=== PATIENT | male | born 1980 | race Caucasian/White ===

== ENCOUNTER 2024-11-08 14:28 | Emergency (ER) | payer MEDICAID, SELFPAY ==
[2024-11-08 14:50] VITALS: BP 122/77
--- NOTE | 2024-11-08 16:49 | ED.MUSCINJ ---
HPI-Injury
General
Chief Complaint: Musculo-Skeletal Complaint
Source: patient
Exam Limitations: none
Time Seen by Provider: 11/08/24 16:43
Nursing documentation reviewed up to this point in time: agreed with
History of Present Illness-Injury
Is this injury a work related problem?: No
Is pt an associate of [facility]?: No
Initial Injury comments:
Patient to ED with complaint of right lateral knee pain. Pain started 1.5 weeks ago. He is wearing a knee brace but states it hurts to put any weight on his leg. No known trauma. Denies fever/chills, recent illness. No redness or swelling of
knee. Brought self to ED for eval.
Past History
Past History
ED Past Medical History: Psychiatric
Social History
Tobacco: Non-smoker
Alcohol: None
Drug: Narcotics
Personal: Single
Living: with family
Employment: Not employed
Family History
Family History: Unable to obtain
Review of Systems
Review of Systems
Allergies reviewed?: Yes
All Other Systems: ROS reviewed and negative except as documented in HPI and ROS
Constitutional: Reports no symptoms
EENT: Reports no symptoms
Respiratory: Reports no symptoms
Cardiac: Reports no symptoms
ABD/GI: Reports no symptoms
: Reports no symptoms
Musculoskeletal: Reports joint pain (Pain to right knee)
Skin: Reports no symptoms
Neurological: Reports no symptoms
Psychiatric: Reports no symptoms
Musculoskeletal Injury Exam
Musculoskeletal Injury Exam
Right Knee:
Pain with Movement?: Moderate
Tender to palpation?: Moderate
Soft tissue swelling?: None
External deformity and angulation?: None
Joint effusion?: None
Contusion?: None
Hematoma-local bleeding into tissue?: None
Crepitus with movement?: No
Joint instability?: No
Malalignment/deformity?: No
Range of motion: Full
Distal skin color and temperature: normal-warm & good color
Capillary Refill: normal
Normal distal neurovascular exam?: Yes
Phy Exam
General Physical Exam
General Presentation: well appearing and no apparent distress
General age: appears stated age
General Skin: warm and dry
General Habitus: normal
Musculoskeletal Exam
Musculoskeletal Exam: full ROM and neuro vasc intact
Skin Exam
Skin Exam: normal color, warm/dry and no rash
Psychiatric Exam
Psychiatric Exam: normal mood/affect
Injury Course
Orders/Labs/Results
Orders:
Orders
11/08/24 14:55
CR Knee- Right 4 Or More View* Urgent
Comment:
Reason For Exam: swelling, pain, no injury
11/08/24 16:48
Crutches-Treatment ONCE
Ketorolac [Toradol] 60 mg IM NOW STA
*Radiology
Radiology exam reviewed: radiology read reviewed
*Pulse Oximetry
SaO2: 100
Oxygen Mode of Delivery: Room air
Patient hypoxic: no
*Critical Care Note
Total Time (30-74mins, 75-104mins- exclusive of procedures): Not Applicable
Update Note
Update Note:
Patient to ED with complaint of right lateral knee pain x 1.5 weks. No history of trauma. No redness or sswelling to joint. No ligmament laxity on exam. He has full ROM. Neurovasc. intact. WIll provide crutches, recommend ice, ibuprofen. He
shadia follow up with ortho. Given instrutions on s/s toreturn to ED and he is agreeable to plan.
ED Attending Note
-
Portions of this chart may have been created with voice recognition software.� Occasional wrong word or��sound alike� substitutions may have occurred due to the inherent limitations of voice recognition software.
Discharge Plan
Departure
Prescriptions:
No Action
fluoxetine 20 MG capsule
80 mg PO DAILY
lamotrigine 100 MG tablet
100 mg PO DAILY
Tylenol Pm
PO PRN PRN (Reason: pain)
Referrals:
NONE,* [Family Provider, Internal Medicine]
Interventions
Interventions:
*Risk Screen - Suicide Last Done: 11/08/24 14:50
*General Assessment Last Done: 11/08/24 14:50
*Neglect/Abuse Screening Last Done: 11/08/24 14:50
*ED COVID-19 Vaccine History Last Done: 11/08/24 14:50
Discharge Date and Time
Print Language: SAMI
[2024-11-08] MEDS: TORADOL 60 MG IM (17:38)
== END 2024-11-08 17:48 | disposition home or self-care (01) ==
LOC: EMR 14:28
PROVIDERS: EMERGENCY PHYSICIAN Emergency Medicine
DX: M25.561 Pain in right knee (principal)
CPT/HCPCS: 96372; 99284; 73564

== ENCOUNTER 2025-01-20 18:39 | Emergency (ER) | payer SELFPAY ==
[2025-01-20 18:46] VITALS: BP 117/81
--- NOTE | 2025-01-20 21:32 | ED.GENMED ---
History of Present Illness
General
Chief Complaint: Abdominal Symptoms
Source: patient
Exam Limitations: none
Time Seen by Provider: 01/20/25 21:27
Nursing documentation reviewed up to this point in time: agreed with
History of Present Illness
History of Present Illness:
Patient is a 44-year-old male who presents to the ER for evaluation. Patient is requesting a note for work. He reports he called out of work Saturday and today because he had been vomiting. He feels better today. he denied any associated
fevers. Denies any abdominal pain/diarrhea. He has no complaints now and is simply requesting work note. He has no insurance and tried multiple urgent care centers. He reports the urgent care was not able to write a work note and so he came here
to the ER.
Past History
Past History
ED Past Medical History: Psychiatric
Social History
Tobacco: Non-smoker
Alcohol: None
Drug: Narcotics
Personal: Single
Living: with family
Employment: Not employed
Family History
Family History: Unable to obtain
Phy Exam
General Physical Exam
General Presentation: no apparent distress
General age: appears stated age
General Skin: warm and dry
General Habitus: normal
General Mental: alert
General Hydration: appears well hydrated
Cardiovascular Exam
Cardiovascular Exam: regular rate/rhythm, no murmur and normal peripheral pulses
Pulmonary Exam
Pulmonary Exam: lungs clear and no respiratory distress
Gastrointestinal Exam
Gastrointestinal Exam: non tender and soft
Neurological Exam
Neurological Exam: alert and oriented x3
Musculoskeletal Exam
Musculoskeletal Exam: full ROM
Skin Exam
Skin Exam: normal color and warm/dry
Psychiatric Exam
Psychiatric Exam: normal mood/affect
Course
Vital Signs
Initial and Last Documented VS:
Initial Vital Signs
Temp Pulse Resp BP Pulse Ox
98.0 F 88 18 117/81 97
01/20/25 18:46 01/20/25 18:46 01/20/25 18:46 01/20/25 18:46 01/20/25 18:46
Last Documented Vital Signs
Temp Pulse Resp BP Pulse Ox
98.0 F 88 18 117/81 97
01/20/25 18:46 01/20/25 18:46 01/20/25 18:46 01/20/25 18:46 01/20/25 18:46
MDM/Problems Addressed
MDM/Problems Addressed:
Patient is a 44-year-old male who presented to the ER for work note he called out sick Saturday and today Saturday because he had intermittent vomiting. He no longer feels ill no vomiting diarrhea no abdominal pain no fevers no complaints.
*Pulse Oximetry
SaO2: 97
Oxygen Mode of Delivery: Room air
Patient hypoxic: no
*Critical Care Note
Total Time (30-74mins, 75-104mins- exclusive of procedures): Not Applicable
ED Attending Note
-
Portions of this chart may have been created with voice recognition software.� Occasional wrong word or��sound alike� substitutions may have occurred due to the inherent limitations of voice recognition software.
Discharge Plan
Departure
Patient Disposition: Home (Routine Discharge)
Date of Disposition: 01/20/25
Time of Disposition: 21:36
Patient with high blood pressure during this ER visit?: No
Condition: Fair
Covid-19: Not Applicable
Discharge Problem:
nausea and vomiting resolved
Prescriptions:
No Action
fluoxetine 20 MG capsule
80 mg PO DAILY
lamotrigine 100 MG tablet
100 mg PO DAILY
Tylenol Pm
PO PRN PRN (Reason: pain)
Referrals:
[facility] [Outside]
Stand Alone Forms: Return to Work
Activity Restrictions/Additional Instructions:
Return if any worsening of symptoms
Interventions
Interventions:
*Risk Screen - Suicide Last Done: 01/20/25 21:12
*General Assessment Last Done: 01/20/25 18:46
*Neglect/Abuse Screening Last Done: 01/20/25 21:13
*ED COVID-19 Vaccine History Last Done: 01/20/25 21:11
*ED Influenza Vaccine History Last Done: 01/20/25 21:11
YS-Wntymz-Kdanqxsvol Assessment Last Done: 01/20/25 21:13
Discharge Date and Time
Print Language: THAI
== END 2025-01-20 21:48 | disposition home or self-care (01) ==
LOC: EMR 18:39
PROVIDERS: EMERGENCY PHYSICIAN Emergency Medicine
DX: R11.2 Nausea with vomiting, unspecified (principal); Z59.71 Insufficient health insurance coverage
CPT/HCPCS: 99282

== ENCOUNTER 2025-02-16 17:02 | Emergency (ER) | payer MEDICAID, SELFPAY ==
[2025-02-16 17:09] VITALS: BP 122/82
[2025-02-16 17:36] LABS: Hematocrit 45.4 % (39.0-52.0); Hemoglobin 14.7 g/dL (13.0-18.0); Mean Corp Hgb Conc. 32.4 g/dL (33.0-37.0); Mean Corpuscular Volume 87.1 fL (80.0-94.0); Nucleated Red Blood Cells % 0 % (-); Platelet Count 198 10^3/uL (130-400); Red Cell Dist. Width 13.1 % (11.5-14.5)
[2025-02-16 17:44] LABS: COVID-19 Antigen Positive (Negative)
[2025-02-16 17:59] LABS: ALT (SGPT) 33 U/L (0-50); AST (SGOT) 26 U/L (17-59); Albumin 4.8 g/dl (3.5-5.0); Alkaline Phosphatase 92 U/L (38-126); Blood Urea Nitrogen 18 mg/dl (9-20); Calcium 9.2 mg/dl (8.4-10.2); Carbon Dioxide 25 mmol/L (22-30); Chloride 103 mmol/L (98-107); Glucose 130 mg/dl (70-99); Potassium 3.7 mmol/L (3.5-5.1); Sodium 137 mmol/L (135-145); Total Protein 8.2 g/dl (6.3-8.2); eGFR > 60.00
[2025-02-16 19:37] VITALS: BMI 24.5
--- NOTE | 2025-02-16 19:45 | ED.GENMED ---
History of Present Illness
General
Chief Complaint: Abdominal Symptoms
Time Seen by Provider: 02/16/25 19:45
History of Present Illness
History of Present Illness:
FOCUSED PAST MEDICAL HISTORY
- Questionable mental health diagnosis
REVIEW OF OLD RECORDS
- The patient was seen here earlier this month also with nausea and vomiting
Note:
CHIEF COMPLAINT(S)
Fatigue, vomiting, and feverish symptoms.
HISTORY OF PRESENT ILLNESS
The patient is a 45-year-old male presenting with symptoms that began on Saturday, characterized by marked fatigue. By Saturday night, the patient experienced persistent vomiting throughout the day on Saturday but noted a resolution of vomiting by the
current day. The patient described feeling feverish, accompanied by headaches, and stated, 'I never get headaches.' These sensations of fever and headaches were more pronounced initially and have improved over the course of the illness. The patient
has not experienced a fever today. They reported previously jodee COVID-19 in 2019, which lasted three weeks and significantly impacted their health at that time. Current symptoms are reportedly less severe compared to the initial 2019
episode.
Laboratory investigations revealed a leukocyte count of 3.8 x 10^3/�L and a hemoglobin level of 14.7 g/dL. Lymphocyte percentage was slightly low at 15.7%. The patient tested positive for COVID-19 but does not appear overtly dehydrated according to
the laboratory findings.
PHYSICAL EXAM
General: Alert, no acute distress. Room air sats 99%
Skin: Warm, dry.
Head: Normocephalic, atraumatic.
Neck: Supple, trachea midline.
Eye, Ears, Nose, Mouth, and Throat: Oral mucosa moist.
Cardiovascular: Normal peripheral perfusion, No edema. Heart rate not elevated, cardiac sounds normal. Heart rate on my examination was 90.
Respiratory: Respirations are non-labored, lungs sound clear. Breath sounds are clear.
Gastrointestinal: Abdomen nondistended.
Back: Normal range of motion, normal alignment.
Musculoskeletal: Normal range of motion, normal strength.
Neurological: Alert and oriented to person, place, time, and situation, no focal neurological deficits observed.
Psychiatric: Cooperative, appropriate mood and affect.
PLAN
- Recommend use of antipyretics such as acetaminophen or ibuprofen to manage fever and discomfort.
- Advise patient to consider wearing a mask at work to protect others due to recent COVID-19 infection.
- Provide a note excusing the patient from work through the end of today.
- Encourage movement and activity as tolerated, as patient feels improvement with mobility.
- Monitor symptoms and seek further medical attention if there is any escalation or new symptoms develop.
DIFFERENTIAL DIAGNOSIS
The Differential Diagnosis includes, in no particular order and is not limited to:
1. COVID-19 infection
2. Influenza
3. Viral gastroenteritis
4. Mononucleosis
5. Strep throat
6. Sinusitis
7. Dehydration
8. Migraine headache
9. Seasonal allergies
10. Common cold
Disposition:
SUMMARY OF ENCOUNTER
The patient, a 45-year-old male, presented to the emergency department with symptoms starting four days ago, which included fatigue, vomiting, feverish feeling, and headaches. The patient reported significant improvement by the day of the visit,
particularly in headaches and nausea. Initially, the patient experienced tachycardia during triage, but upon evaluation by the physician, the heart rate was normal at 90 bpm. The patient was COVID-19 positive with less severe symptoms compared to a
previous 2020 COVID-19 episode.
DISPOSITION
Discharge
PLAN
- Recommend use of antipyretics such as acetaminophen or ibuprofen for any residual fever or discomfort.
- Advise the patient to consider wearing a mask at work to protect others due to recent COVID-19 infection.
- Provide a note excusing the patient from work through the end of today.
- Encourage movement and activity as tolerated.
- Monitor symptoms and seek further medical attention if there is any escalation or new symptoms develop.
INDEPENDENT REVIEW OF LABS AND INTERPRETATION OF TESTS
My independent review of the Complete Blood Count (CBC) shows a leukocyte count of 3.8 x 10^3/�L and a lymphocyte percentage of 15.7%. Hemoglobin level is 14.7 g/dL.
PATIENT EDUCATION AND COUNSELING
The patient was informed about the importance of hydration and resting to help with recovery from COVID-19. He was also advised to seek medical attention if symptoms worsen or new symptoms arise. Guidance was given on the importance of wearing masks
in public settings to prevent transmission.
FOLLOW-UP INSTRUCTIONS
Patient advised to follow up with primary care provider if symptoms do not improve or worsen. Immediate medical attention should be sought if any new or concerning symptoms develop.
MEDICATION RECONCILIATION
Acetaminophen or ibuprofen recommended for fever management (specific brand not mentioned).
MEDICAL DECISION MAKING
-Complexity of Data Reviewed: Chronic conditions affecting care include the patients past infection with COVID-19. Differential diagnosis for current symptoms includes COVID-19 infection, viral gastroenteritis, influenza, mononucleosis, strep
throat, sinusitis, dehydration, migraine headache, seasonal allergies, and common cold.
-Data:
Category 1
Review of the Complete Blood Count (CBC) including leukocyte count, hemoglobin, and lymphocyte percentage was conducted.
-Risk:
Prescription medication was not prescribed, but vkwq-ssz-niwauin antipyretics were recommended.
DIAGNOSIS
COVID-19 positive (ICD-10: U07.1)
Past History
Past History
ED Past Medical History: Psychiatric
Social History
Tobacco: Non-smoker
Alcohol: None
Drug: Narcotics
Personal: Single
Living: with family
Employment: Not employed
Family History
Family History: Unable to obtain
Phy Exam
Physical Exam
Physical Exam:
See HPI
Course
Orders/Labs/Results
Orders:
Orders
02/16/25 17:24
COVID-19 Antigen Urgent
Source: Nasal Swab
Complete Blood Count/With Diff Urgent
Comprehensive Metabolic Panel Urgent
INF RAPID [Influenza A+B Rapid Molecular] Urgent
SANJAY Source: Nasal Swab
Specimen Description:
Abnormal Lab Results
02/16/25
17:24
WBC 3.8 L 10^3/uL
(4.8-10.8)
MCHC 32.4 L g/dL
(33.0-37.0)
MPV 10.9 H fL
(7.4-10.4)
Absolute Lymphs (auto) 0.6 L 10^3/uL
(1.2-3.4)
Lymphocytes % 15.7 L %
(20.5-51.1)
Monocytes % 13.3 H %
(1.7-9.3)
Glucose 130 H mg/dl
(70-99)
SARS-CoV-2 Antigen Positive A
(Negative)
02/16/25 17:24
02/16/25 17:24
Vital Signs
Initial and Last Documented VS:
Initial Vital Signs
Temp Pulse Resp BP Pulse Ox
36.7 C 116 20 122/82 99
02/16/25 17:09 02/16/25 17:09 02/16/25 17:09 02/16/25 17:09 02/16/25 17:09
Last Documented Vital Signs
Temp Pulse Resp BP Pulse Ox
36.7 C 116 20 122/82 99
02/16/25 17:09 02/16/25 17:09 02/16/25 17:09 02/16/25 17:09 02/16/25 19:45
*Pulse Oximetry
SaO2: 99
Oxygen Mode of Delivery: Room air
Patient hypoxic: no
*Critical Care Note
Total Time (30-74mins, 75-104mins- exclusive of procedures): Not Applicable
ED Attending Note
-
Portions of this chart may have been created with voice recognition software.� Occasional wrong word or��sound alike� substitutions may have occurred due to the inherent limitations of voice recognition software.
Discharge Plan
Departure
Patient Disposition: Home (Routine Discharge)
Date of Disposition: 02/16/25
Time of Disposition: 19:56
Patient with high blood pressure during this ER visit?: Yes
Discharge Problem:
COVID-19
Instructions: Nausea and Vomiting, Adult (DC), COVID-19 in adults - ED (DC), BLOOD PRESSURE
Prescriptions:
No Action
fluoxetine 20 MG capsule
80 mg PO DAILY
lamotrigine 100 MG tablet
100 mg PO DAILY
Tylenol Pm
PO PRN PRN (Reason: pain)
Referrals:
NONE,* [Family Provider, Internal Medicine]
Stand Alone Forms: Return to Work
Activity Restrictions/Additional Instructions:
Continue Tylenol and/or Motrin for fevers and pains. Return here if worse or other concerns. You are COVID-19 positive but other basic blood work is unremarkable. I have included a work note.
Interventions
Interventions:
*Risk Screen - Suicide Last Done: 02/16/25 17:09
*General Assessment Last Done: 02/16/25 19:36
*Neglect/Abuse Screening Last Done: 02/16/25 17:09
*ED- Fall Risk Assessment Last Done: 02/16/25 19:36
*ED COVID-19 Vaccine History Last Done: 02/16/25 19:36
*ED Influenza Vaccine History Last Done: 02/16/25 19:36
RG-Ymlgwc-Tasxkhlfbn Assessment Last Done: 02/16/25 19:33
Discharge Date and Time
Print Language: FAROESE
[2025-02-16 20:14] VITALS: BP 139/90
== END 2025-02-16 20:14 | disposition home or self-care (01) ==
LOC: EMR 17:02
PROVIDERS: Student in an Organized Health Care Education/Training Program; EMERGENCY PHYSICIAN Emergency Medicine
DX: U07.1 COVID-19 (principal); R03.0 Elevated blood-pressure reading, without diagnosis of hypertension; Z86.16 Personal history of COVID-19
CPT/HCPCS: 99283; 80053; 85025; 87502; 87811

== ENCOUNTER 2025-03-30 12:23 | Emergency (ER) | payer SELFPAY ==
[2025-03-30 12:29] VITALS: BP 121/83
--- NOTE | 2025-03-30 14:28 | ED.GENMED ---
History of Present Illness
General
Chief Complaint: Musculo-Skeletal Complaint
Time Seen by Provider: 03/30/25 14:02
History of Present Illness
History of Present Illness:
With history of schizophrenia presents the emergency department with swelling and pain. He is unable to bear weight on the affected extremity. He has a history of a 'ligament tear' of his extremity states he has has 'difficulty' since that time.
He has never had swelling to this degree. Denies fevers or chills. Denies any acute traumatic injury. Denies any known recent tick bites. Has been taking ibuprofen without relief
Past History
Past History
ED Past Medical History: Psychiatric
Social History
Tobacco: Non-smoker
Alcohol: None
Drug: Narcotics
Personal: Single
Living: with family
Employment: Not employed
Family History
Family History: Unable to obtain
Review of Systems
Review of Systems
Allergies reviewed?: Yes
All Other Systems: ROS reviewed and negative except as documented in HPI and ROS
Phy Exam
Physical Exam
Physical Exam:
GEN: Well appearing, NAD, WDWN
HEENT: Oral mucosa moist, no scleral icterus
Cardiac: Regular rate
Lung: No respiratory distress, no tachypnea
MSK: Large left knee effusion without erythema, range of motion restricted by pain
Skin: Good color, no pallor or jaundice, no rashes
Neuro: AO x3, moves all extremities freely
Psych: Calm, cooperative
Course
Orders/Labs/Results
Orders:
Orders
03/30/25 12:24
Knee, Left 4 or More Views [CR Knee - Left 4 Or More View*] Urgent
Comment:
Reason For Exam: pain
03/30/25 14:26
Ketorolac [Toradol] 30 mg IM NOW STA
03/30/25 14:32
Body Fluid Cell Count Urgent
What is the Body Fluid: joint
Date Specimen was Collected: 03/30/25
Time Specimen was Collected: 14:31
Comment: with DIFF
Body Fluid Crystals Urgent
What is the Body Fluid: joint
Date Specimen was Collected: 03/30/25
Time Specimen was Collected: 14:31
Lyme Progressive Urgent
03/30/25 14:34
Fluid Culture with Gram Stain Urgent
SANJAY Source: Joint Fluid
Specimen Description:
Date Specimen was Collected: 03/30/25
Time Specimen was Collected: 14:
Vital Signs
Initial and Last Documented VS:
Initial Vital Signs
Temp Pulse Resp BP Pulse Ox
98 F 105 18 121/83 99
03/30/25 12:29 03/30/25 12:29 03/30/25 12:29 03/30/25 12:29 03/30/25 12:29
Last Documented Vital Signs
Temp Pulse Resp BP Pulse Ox
98 F 105 18 121/83 99
03/30/25 12:29 03/30/25 12:29 03/30/25 12:29 03/30/25 12:29 03/30/25 14:31
Procedures
Incision/Drainage/Joint Aspiration
L knee:
Anethesia: 1% Lidocaine
Preparation: cleaned with Betadine
Type of procedure: aspiration
Nature of site: other (Joint)
How much fluid was obtained?: number in mls (90)
Fluid description: straw colored and blood tinged
Treatment: bandaid applied (with ROSALIA wrap)
MDM/Problems Addressed
MDM/Problems Addressed:
Appearance of fluid suggestive of acute inflammatory effusion as opposed to infectious. Will send Lyme titer for completeness. No indication for antibiotics empirically.
*Pulse Oximetry
SaO2: 99
Oxygen Mode of Delivery: Room air
Patient hypoxic: no
*Critical Care Note
Total Time (30-74mins, 75-104mins- exclusive of procedures): Not Applicable
ED Attending Note
-
Portions of this chart may have been created with voice recognition software.� Occasional wrong word or��sound alike� substitutions may have occurred due to the inherent limitations of voice recognition software.
Discharge Plan
Departure
Patient Disposition: Home (Routine Discharge)
Date of Disposition: 03/30/25
Time of Disposition: 14:29
Patient with high blood pressure during this ER visit?: No
Discharge Problem:
Effusion of left knee
Instructions: Swollen Joints (DC)
Prescriptions:
No Action
fluoxetine 20 MG capsule
80 mg PO DAILY
lamotrigine 100 MG tablet
100 mg PO DAILY
Tylenol Pm
PO PRN PRN (Reason: pain)
Referrals:
NONE,* [Family Provider, Internal Medicine]
Stand Alone Forms: Return to Work
Activity Restrictions/Additional Instructions:
Continue with ibuprofen 600mg every 6-8 hours
I will call with any concerning lab results on your knee fluid
Interventions
Interventions:
*Risk Screen - Suicide Last Done: 03/30/25 13:29
*General Assessment Last Done: 03/30/25 13:29
*Neglect/Abuse Screening Last Done: 03/30/25 13:29
*ED COVID-19 Vaccine History Last Done: 03/30/25 13:29
*ED Influenza Vaccine History Last Done: 03/30/25 13:29
*Nursing Disposition Last Done: 03/30/25 15:26
ED-Musculoskeletal Assessment Last Done: 03/30/25 13:29
Discharge Date and Time
Discharge Date/Time: 03/30/25 15:27
Print Language: INDONESIAN
[2025-03-30] MEDS: TORADOL 30 MG IM (14:46)
[2025-03-30 15:24] LABS: Body Fluid Second Tech ASW
== END 2025-03-30 15:27 | disposition home or self-care (01) ==
LOC: EMR 12:23
PROVIDERS: Physician Assistant; EMERGENCY PHYSICIAN Emergency Medicine
DX: M25.462 Effusion, left knee (principal); M25.562 Pain in left knee
CPT/HCPCS: 99284; 96372; 20610; 73564; 86618; 87015; 87070; 87205; 89051; 89060

== ENCOUNTER 2025-04-03 12:51 | Emergency (ER) | payer SELFPAY ==
[2025-04-03 12:55] VITALS: BP 142/78
--- NOTE | 2025-04-03 13:57 | ED.GENMED ---
History of Present Illness
General
Chief Complaint: Musculo-Skeletal Complaint
Source: patient
Time Seen by Provider: 04/03/25 13:39
History of Present Illness
History of Present Illness:
45-year-old male presenting back to the emergency department for evaluation of reaccumulation of his left knee joint effusion. He endorses moderate pain and limited range of motion. He does note that he has been using the Calvin wrap for compression.
Denies any fevers or infectious symptoms, no new traumas. Patient notes that he has been unable to follow-up with orthopedics due to having no health insurance. Also does not have any primary care provider.
Past History
Past History
ED Past Medical History: Psychiatric
ED Past Surgical History: Orthopedic
Social History
Tobacco: Non-smoker
Alcohol: None
Drug: Narcotics
Personal: Single
Living: with family
Employment: Not employed
Family History
Family History: Unable to obtain
Review of Systems
Review of Systems
All Other Systems: ROS reviewed and negative except as documented in HPI and ROS
Phy Exam
Physical Exam
Physical Exam:
GENERAL: Alert , in no apparent distress
EYE: conjunctiva clear
Head: Normocephalic atraumatic
NECK: Supple,
ENT: mmm.
LUNGS: no acute respiratory distress
NEUROLOGICAL: Alert and oriented
SKIN: Warm and dry, skin intact.
MUSCULOSKELETAL: Left knee: Moderate joint effusion noted. Tenderness directly over the suprapatella portion of the knee. Limited range of motion secondary to pain. No overlying erythema. Cap refill less than 2 seconds. Sensation grossly intact
to light touch. No breaks in the skin
PSYCH: Normal and appropriate interaction.
Scores
Heart Failure Risk
Heart Failure Risk Score: Not Applicable
Heart Score for Chest Pain Patients
STEMI patient?: Not applicable
Withdrawal Assessment of Alcohol
Withdrawal Assessment Completed?: Not applicable
Course
Vital Signs
Initial and Last Documented VS:
Initial Vital Signs
Temp Pulse Resp BP Pulse Ox
98.4 F 109 16 142/78 98
04/03/25 12:55 04/03/25 12:55 04/03/25 12:55 04/03/25 12:55 04/03/25 12:55
Last Documented Vital Signs
Temp Pulse Resp BP Pulse Ox
98.4 F 109 16 142/78 98
04/03/25 12:55 04/03/25 12:55 04/03/25 12:55 04/03/25 12:55 04/03/25 13:59
Procedures
Incision/Drainage/Joint Aspiration
Left Knee:
Anethesia: 1% Lidocaine
Preparation: cleaned with Betadine
Type of procedure: aspiration
How much fluid was obtained?: number in mls (95)
Fluid description: clear and straw colored
Treatment: bandaid applied
MDM/Problems Addressed
Differential Diagnosis Includes:
OA
Gout
I do not suspect septic joint
Lyme titer pending from previous joint tap but unlikely given time of year
MDM/Problems Addressed:
45-year-old male presenting to the ER for reevaluation and reaccumulation of joint fluid. No signs of obvious infection. Joint fluid analysis reviewed from last visit which did not grow any joint crystals or bacteria. arthrocentesis performed
again with significant improvement of symptoms. Recommended outpatient follow-up at the [facility]. Will send home with a long-term steroid taper
*Pulse Oximetry
SaO2: 98
Oxygen Mode of Delivery: Room air
Patient hypoxic: no
*Critical Care Note
Total Time (30-74mins, 75-104mins- exclusive of procedures): Not Applicable
ED Attending Note
-
Portions of this chart may have been created with voice recognition software.� Occasional wrong word or��sound alike� substitutions may have occurred due to the inherent limitations of voice recognition software.
Discharge Plan
Departure
Patient Disposition: Home (Routine Discharge)
Date of Disposition: 04/03/25
Time of Disposition: 13:57
Patient with high blood pressure during this ER visit?: Yes
Discharge Problem:
Effusion of left knee
Instructions: Swollen Joints (DC)
Prescriptions:
New
prednisone 10 mg Tablet
See Rx Instructions .ROUTE .COMPLEX Qty: 30 0RF
Rx Instructions:
Take By Mouth:
40 mg daily x3 days, 30 mg daily x3 days,
20 mg daily x3 days, 10 mg daily x3 days.
No Action
fluoxetine 20 MG capsule
80 mg PO DAILY
lamotrigine 100 MG tablet
100 mg PO DAILY
Tylenol Pm
PO PRN PRN (Reason: pain)
Referrals:
[facility] [Outside]
Referral Note: Please call for appointment
NONE,* [Family Provider, Internal Medicine]
Interventions
Interventions:
*Risk Screen - Suicide Last Done: 04/03/25 12:55
*General Assessment Last Done: 04/03/25 12:55
*Neglect/Abuse Screening Last Done: 04/03/25 12:55
ED-Musculoskeletal Assessment Last Done: 04/03/25 13:05
Discharge Date and Time
Print Language: AMHARIC
== END 2025-04-03 14:10 | disposition home or self-care (01) ==
LOC: EMR 12:51
PROVIDERS: EMERGENCY PHYSICIAN Emergency Medicine
DX: M25.462 Effusion, left knee (principal)
CPT/HCPCS: 20610; 99283